=== PATIENT | male | born 1955 ===

== ENCOUNTER 2017-07-03 00:45 | Inpatient (IN) | payer MEDICARE, BC ==
[2017-07-03] VITALS (14 sets, daily range): BP systolic 98–140; BP diastolic 58–92
[~2017-07-03] VITALS: Ht 157.5 cm; Wt 123.4 kg
[~2017-07-03 00:45] MED LIST: ACET500T68 PO; ALLO-2 PO; ASPI-764 PO; ATOR40TA69 PO; CETI-176 PO; DOCU-202 PO; DULO60CA7 PO; Duloxetine Hcl PO; FLUO60TA PO; FURO80TA10 PO; GABA-547 PO; GABA-549 PO; HYDR-2966 PO; LISI-353 PO; LISI20TA29 PO; METO2.5T15 PO; MOM PO; MULT-820 PO; NAPR220C12 PO; OXYC-823 PO; POLY17PO21 PO; POTA20TA10 PO; POTA20TA94 PO; RANI-318 PO; TRAM-420 PO
[2017-07-03] MEDS ORDERED: THROMBIN (BOVINE) 20,000 UNIT VIAL ONE ×2 (06:20→06:57)
[2017-07-03] MEDS ORDERED: PROPOFOL EMUL(*) 10MG/ML 20 ML 80 ML ONE (06:28)
[2017-07-03] MEDS ORDERED: fentaNYL CITR 250 MCG/5 ML AMP ONE (06:33)
[2017-07-03] MEDS ORDERED: LIDOCAINE 2% IV 100 MG/5ML SYR ONE (06:33)
[2017-07-03] MEDS ORDERED: DEXAMETHASONE SOD PHOS 10MG/ML ONE (07:14)
[2017-07-03] MEDS ORDERED: ONDANSETRON 4 MG/2 ML VIAL ONE (07:14)
[2017-07-03] MEDS ORDERED: PROPOFOL EMUL(*) 10MG/ML 20 ML 60 ML ONE ×3 (07:25→09:25)
[2017-07-03] MEDS ORDERED: SUGAMMADEX SOD 500 MG/5 ML SDV ONE (07:45)
[2017-07-03] MEDS ORDERED: NS 0.9% IRRIGATION 1000ML PLCT IR ONE (09:12)
[2017-07-03] MEDS ORDERED: TRANEXAMIC AC 1000 MG/10ML SDV 1,000 MG in DEXTROSE 5% 50 ML BAG 50 ML IVPB ONE (09:15)
[2017-07-03] MEDS ORDERED: ceFAZolin(*) 1 GM VIAL 3 GM in NS(*) 0.9% 100 ML BAG 100 ML IVPB ONE (09:30)
[2017-07-03] MEDS ORDERED: FAMOTIDINE 20 MG TAB PO ONE (09:30)
[2017-07-03] MEDS ORDERED: MIDAZOLAM 2 MG/2 ML VIAL IVP PRN (09:30)
[2017-07-03] MEDS ORDERED: NORMOSOL R SOLN(*) 1000 ML BAG 1,000 ML IV PRN (09:30)
[2017-07-03] MEDS ORDERED: LIDOCAINE/SOD BICARB 8.4% SYR ID ONE (09:30)
[2017-07-03] MEDS ORDERED: fentaNYL CITR 100 MCG/2 ML AMP ONE ×4 (09:35→12:45)
[2017-07-03] MEDS ORDERED: PROPOFOL EMUL(*) 10MG/ML 20 ML 40 ML ONE (10:15)
[2017-07-03] MEDS ORDERED: PROPOFOL EMUL(*) 10MG/ML 20 ML 20 ML ONE ×2 (10:49→11:13)
[2017-07-03] MEDS ORDERED: VANCOMYCIN 1 GM VIAL ONE (10:58)
[2017-07-03] MEDS ORDERED: ceFAZolin 1 GM VIAL ONE (11:12)
[2017-07-03] MEDS ORDERED: HYDROmorphone HCL 2 MG/ML SDV IVP PRN (12:20)
[2017-07-03] MEDS ORDERED: FLUSH 10 ML SYR IVP PRN (12:20)
[2017-07-03] MEDS ORDERED: NORMOSOL R SOLN(*) 1000 ML BAG 1,000 ML IV ONE (12:20)
[2017-07-03] MEDS ORDERED: MAGNESIUM HYDROXIDE* 30ML UDCP PO PRN (12:20)
[2017-07-03] MEDS ORDERED: diphenhydrAMINE 25 MG CAP PO PRN (12:20)
[2017-07-03] MEDS ORDERED: LR(*) 1000 ML BAG 1,000 ML IV PRN (12:20)
[2017-07-03] MEDS ORDERED: ACETAMINOPHEN 500 MG TAB PO PRN (12:20)
[2017-07-03] MEDS ORDERED: ONDANSETRON 4 MG/2 ML VIAL IVP PRN (12:20)
[2017-07-03] MEDS ORDERED: BENZOCAINE/MENTHOL 1 EACH LOZG PO PRN (12:20)
[2017-07-03] MEDS ORDERED: ACETAMINOPHEN(*)1000 MG/100 ML 100 ML IVPB PRN (12:20)
[2017-07-03] MEDS ORDERED: DIAZEPAM 5 MG TAB PO PRN (12:20)
[2017-07-03] MEDS ORDERED: BISACODYL 10 MG SUPP PR PRN (12:20)
[2017-07-03] MEDS ORDERED: oxyCODONE HCL 5 MG CAP PO PRN (12:20)
--- NOTE | 2017-07-03 13:55 | RADIOLOGY IMAGING REPORT ---
FACILITY: [facility] - [place] PATIENT NAME: Artur Ansari : 1955 MR: [id number] V: [id number] EXAM DATE: ORDERING PHYSICIAN: SANDRA CHENG TECHNOLOGIST: Location: [facility] - [place] Patient: Artur Ansari : 1955 Visit/Account:[id number] Date of Sevice: 07/03/2017 Exam type: LUMBAR SPINE 1 VIEW History: POST OP L3-5 LAMI, L3-L5 FUSION Comparison: Intraoperative views lumbar spine performed earlier in the day. Findings: A single frontal view of the lumbar spine demonstrates bilateral pedicle screws and posterior fixatio n rods from L3 to L5. What appears to be a lap sponge marker projects over the L3-4 vertebral bodies on this single view. An ovoid opaque density projects over the inferior pole the left kidney. This could represent a renal calculus or superimposed shadow IMPRESSION: 1. As above Report Dictated By: Cristine Yeager MD at 07/03/2017 1:50 PM Report E-Signed By: Cristine Yeager MD at 07/03/2017 1:52 PM WSN:[email or web address]
--- NOTE | 2017-07-03 13:58 | RADIOLOGY IMAGING REPORT ---
FACILITY: [facility] - [place] PATIENT NAME: Artur Ansari : 1955 MR: [id number] V: [id number] EXAM DATE: ORDERING PHYSICIAN: SANDRA CHENG TECHNOLOGIST: Location: [facility] - [place] Patient: Artur Ansari : 1955 Visit/Account:[id number] Date of Sevice: 07/03/2017 Exam type: LUMBAR SPINE 1 VIEW History: L3-L5 DFISC HERNIATION Comparison: MR lumbar spine January 16, 2017. Findings: Assuming the patient has five lumbar type vertebral bodies present there two lateral intraoperative v iews of the lumbar spine demonstrating pedicle screws and posterior fixation rods at L3 L4 and L5. Metallic instruments project in the dorsal soft tissues lumbar spine. Old compression fracture of L1 again noted IMPRESSION: 1. As above Report Dictated By: Cristine Yeager MD at 07/03/2017 1:52 PM Report E-Signed By: Cristine Yeagre MD at 07/03/2017 1:55 PM WSN:[email or web address]
[2017-07-03] MEDS ORDERED: PYRI200T PO (13:59)
[2017-07-03] MEDS ORDERED: OMEG-96 PO (13:59)
[2017-07-03] MEDS: APAP/HYDROCODONE 325/5 TAB PO PRN ×2 (14:12→20:28)
[2017-07-03] MEDS: ceFAZolin 3 GM in NS 0.9% 100 ML BAG IVPB SCH ×2 (15:27→23:36)
[2017-07-03] MEDS ORDERED: LABETALOL HCL 20 MG/4 ML SYR ONE (16:37)
[2017-07-03] MEDS ORDERED: SUCCINYLCHOL CHL 200MG/10ML VL ONE (16:37)
[2017-07-03] MEDS ORDERED: ROCURONIUM BROM 10 MG/ML 10 ML ONE (16:37)
--- NOTE | 2017-07-03 17:24 | Hospitalist Consultation ---
History of Present Illness Requesting Physician Dr. Marrero Reason for Consult Hypertension History of Present Illness This patient was admitted for lumbar surgery. It is reported that the surgery went well and was without complication. History Problems: (1) Obesity, morbid, BMI 40.0-49.9 Status: Chronic (2) YE (obstructive sleep apnea) Status: Chronic (3) Gout Status: Chronic (4) Neuropathy Status: Chronic (5) HTN (hypertension) Status: Chronic (6) Chronic edema Status: Chronic Home Meds Reported Medications Pyridoxine HCl (Vitamin B6) (B-6) 200 Mg Tablet.er, 100 MG PO BID 07/03/17 Jackson-3 Fatty Acids/Fish Oil (OMEGA 3 1,000 MG SOFTGEL) 1 Each Capsule, 2 EACH PO BID, CAPSULE 07/03/17 Acetaminophen (TYLENOL EXTRA STRENGTH) 500 Mg Tablet, 3 TAB PO DAILY, TAB 06/28/17 Gabapentin (GABAPENTIN) 300 Mg Capsule, 300 MG PO TID, CAPSULE 06/28/17 Duloxetine HCl (Duloxetine HCl) 60 Mg Capsule.dr, 1 TAB PO DAILY 06/28/17 Lisinopril/Hydrochlorothiazide (LISINOPRIL-HCTZ 20-12.5 MG TAB) 1 Each Tablet, 1 EACH PO DAILY 06/28/17 Potassium Chloride (Potassium Chloride) 20 Meq Tablet.er, 1 TAB PO QDAY 09/26/16 Metolazone (METOLAZONE) 2.5 Mg Tablet, 2.5 MG PO QDAY 09/26/16 Furosemide (LASIX) 80 Mg Tablet, 1 TAB PO QDAY, TAB 09/26/16 Ranitidine Hcl (RANITIDINE HCL) 150 Mg Tablet, 150 MG PO DAILY 09/19/16 Multivitamin (MULTIVITAMINS) 1 Each Tablet, 1 EACH PO DAILY 09/19/16 Cetirizine Hcl (ZYRTEC) 10 Mg Tablet, 10 MG PO QDAY, TAB 09/19/16 Allopurinol (Allopurinol) 300 Mg Tablet, 1 TAB PO DAILY 09/19/16 Discontinued Reported Medications Oxycodone Hcl (OXYCONTIN) 10 Mg Tab.er.12h, 10 MG PO, TAB 10/27/16 Atorvastatin Calcium (ATORVASTATIN CALCIUM) 40 Mg Tablet, 1 TAB PO QDAY, TAB 09/19/16 Gabapentin (GABAPENTIN) 100 Mg Capsule, 100 MG PO BID, CAPSULE 09/19/16 Discontinued Scripts Lisinopril (LISINOPRIL) 20 Mg Tablet, 20 MG PO QDAY, #0 Hold for sbp<145 Prov:RAJESH DOBSON MD 09/26/16 Hydrochlorothiazide (HYDROCHLOROTHIAZIDE) 25 Mg Tablet, 12.5 MG PO QDAY, #0 Hold for sbp<145 Prov:RAJESH DOBSON MD 09/26/16 [Duloxetine Hcl] 30 MG CAPCR No Conflict Check, 60 MG PO QDAY, #0 Prov:RAJESH DOBSON MD 09/26/16 Docusate Sodium (DOCUSATE SODIUM) 100 Mg Capsule, 100 MG PO BID, #0 CAPSULE Prov:RAJESH DOBSON MD 09/26/16 Aspirin (ASPIRIN EC) 325 Mg Tablet.dr, 325 MG PO QDAY, #0 Take for 30 days after surgery for blood clot prevention Prov:RAJESH DOBSON MD 09/26/16 Allergies: Coded Allergies: No Known Drug Allergies (Unverified , 06/28/17) Patient History: FH: aortic aneurysm FATHER, FH: coronary artery bypass surgery BROTHER OR SISTER FH: diabetes mellitus MOTHER Hx Smoking: Yes (QUIT 1984. < 1 PPD X 5 YRS) Smoking Status: Former Smoker Caffeine Intake: Coffee, Soda Caffeine/Cups Per Day: 2-3 C. DAILY, 1 SODA DAILY Hx Alcohol Use: Yes Hx Substance Use Disorder: No Social Drug Use: Never History of IV Drug Use: No Review of Systems All Systems Reviewed/Normal: Yes Exam Vital Signs Vital Signs Date Time Temp Pulse Resp B/P (MAP) Pulse Ox O2 Delivery O2 Flow Rate FiO2 07/03/17 14:30 119/83 (95) 96 07/03/17 13:45 92 07/03/17 13:43 Oxy Mask 07/03/17 13:36 97.7 12 5.0 Neuro: No Gross deficits Eyes: PERRLA Cardiovascular: Regular Rate and Rhythm Extremities: No Edema Integumentary: No Cyanosis Assessment and Plan Problems: (1) HTN (hypertension) Status: Chronic Assessment & Plan: He is on chronic treatment with lisinopril/HCTZ. The lisinopril has been ordered with hold parameters. (2) Neuropathy Status: Chronic Assessment & Plan: He is on chronic treatment with gabapentin. (3) Gout Status: Chronic Assessment & Plan: He is on chronic treatment with allopurinol. (4) YE (obstructive sleep apnea) Status: Chronic Assessment & Plan: He is not compliant with CPAP. (5) Chronic edema Status: Chronic Assessment & Plan: He is on chronic treatment with Lasix and metolazone. (6) Obesity, morbid, BMI 40.0-49.9 Status: Chronic Central Venous Access Medical Necessity for Access: IV Access Venous Thromboembolism Antithrombotics Is Pt On Any Antithrombotics?: No Exam Sepsis Risk: No Definite Risk IKE CARRERA DO Jul 03, 2017 17:24
[2017-07-03] MEDS: GABAPENTIN 300 MG CAP PO SCH (20:28)
[2017-07-03] MEDS: DOCUSATE SODIUM 100 MG CAP PO SCH (20:28)
[2017-07-03] MEDS: PYRIDOXINE HCL 50 MG TAB PO SCH (20:29)
[2017-07-04] VITALS (7 sets, daily range): BP systolic 102–162; BP diastolic 72–86; Ht 157.5 cm; Wt 123.4 kg
[2017-07-04] MEDS: APAP/HYDROCODONE 325/5 TAB PO PRN ×3 (01:00→20:47)
[2017-07-04 06:57] LABS: PLATELET COUNT, AUTOMATED 302 K/uL (150-450)
[2017-07-04] MEDS: ceFAZolin 3 GM in NS 0.9% 100 ML BAG IVPB SCH (07:28)
--- NOTE | 2017-07-04 07:41 | Hospitalist Progress Note ---
Subjective Progress Notes Subjective This patient was admitted for lumbar surgery. He had no acute issues overnight. Patient Complains of: Cardiovascular: No: Chest Pain Respiratory: No: Shortness of Breath Physical Exam Vital Signs Date Time Temp Pulse Resp B/P (MAP) Pulse Ox O2 Delivery O2 Flow Rate FiO2 07/04/17 07:33 98.2 103 16 110/72 (85) Nasal Cannula 2.0 07/04/17 00:51 87 Intake and Output 07/05/17 07:00 Output Total 50 ml Balance -50 ml Output Drainage Total 50 ml Cardiovascular: Regular Rate and Rhythm Respiratory: Clear to Auscultation Result Diagram: 07/04/17 0649 Assessment and Plan Problems: (1) HTN (hypertension) Status: Chronic Assessment & Plan: He is on chronic treatment with lisinopril/HCTZ. The lisinopril has been ordered with hold parameters. (2) Neuropathy Status: Chronic Assessment & Plan: He is on chronic treatment with gabapentin. (3) Gout Status: Chronic Assessment & Plan: He is on chronic treatment with allopurinol. (4) YE (obstructive sleep apnea) Status: Chronic Assessment & Plan: He is not compliant with CPAP. (5) Chronic edema Status: Chronic Assessment & Plan: He is on chronic treatment with Lasix and metolazone. Both medications are ordered with hold parameters. (6) Obesity, morbid, BMI 40.0-49.9 Status: Chronic Central Venous Access Medical Necessity for Access: IV Access Exam Sepsis Risk: No Definite Risk Problem Qualifiers (1) HTN (hypertension): Hypertension type: essential hypertension Qualified Codes: I10 - Essential ( primary) hypertension IKE CARRERA DO Jul 04, 2017 07:41
[2017-07-04] MEDS: DOCUSATE SODIUM 100 MG CAP PO SCH ×2 (08:33→20:47)
[2017-07-04] MEDS: GABAPENTIN 300 MG CAP PO SCH ×3 (08:33→20:47)
[2017-07-04] MEDS: PYRIDOXINE HCL 50 MG TAB PO SCH ×2 (08:33→20:48)
[2017-07-04] MEDS ORDERED: METOLAZONE 2.5 MG TAB PO SCH (09:00)
[2017-07-04] MEDS ORDERED: CETIRIZINE HCL 10 MG TAB PO SCH (09:00)
[2017-07-04] MEDS ORDERED: DULoxetine HCL 30 MG CAPCR PO SCH (09:00)
[2017-07-04] MEDS ORDERED: FUROSEMIDE 80 MG TAB PO SCH (09:00)
[2017-07-04] MEDS ORDERED: ALLOPURINOL 300 MG TAB PO SCH (09:00)
[2017-07-04] MEDS ORDERED: LISINOPRIL 20 MG TAB PO SCH (09:00)
[2017-07-04] MEDS ORDERED: POTASSIUM CHL 20 MEQ TABCR PO SCH (09:00)
--- NOTE | 2017-07-04 10:06 | RADIOLOGY IMAGING REPORT ---
FACILITY: [facility] PATIENT NAME: Artur Ansari : 1955 MR: [id number] V: [id number] EXAM DATE: ORDERING PHYSICIAN: SANDRA CHENG TECHNOLOGIST: Location: [facility] [place] Patient: Artur Ansari : 1955 Visit/Account:[id number] Date of Sevice: 07/04/2017 Exam type: LUMBAR SPINE 2 OR 3 VIEW History: post lumbar surgery Comparison: July 03, 2017. Findings: There are bilateral pedicle screws and posterior fixation rods at L3, L4 and L5. The vertebral franco s appear in good alignment. What appeared to be a lap marker on the prior AP view of the spine from July 03, 2017 now appears to represent a drain. Moderate disc space narrowing at L1-2 noted in add ition to chronic compression fracture of L1 IMPRESSION: 1. Post surgical changes from posterior lumbar interbody fusion L3-L5 with the vertebral bodies appe aring in good anatomic alignment. Report Dictated By: Cristine Yeager MD at 07/04/2017 9:59 AM Report E-Signed By: Cristine Yeager MD at 07/04/2017 10:02 AM WSN:[email or web address]
--- NOTE | 2017-07-04 10:21 | OPERATIVE REPORT 1 ---
EVENT DATE: July 03, 2017 SURGEON: Leonidas Marrero MD ANESTHESIOLOGIST: Hema Poe MD ANESTHESIA: General endotracheal anesthesia. DERMATOLOGIST: PHUONG Carroll, REVIEW ENGINEER PREOPERATIVE DIAGNOSIS L3-L4 and L4-L5 degenerative spondylolisthesis with spinal stenosis and neurogenic claudication. POSTOPERATIVE DIAGNOSIS L3-L4 and L4-L5 degenerative spondylolisthesis with spinal stenosis and neurogenic claudication. PROCEDURE PERFORMED L3 through L5 laminectomy and L3 through L5 posterolateral instrumented fusion. IV FLUIDS 1900 mL. ESTIMATED BLOOD LOSS 400 mL. IMPLANTS Reline pedicle screws, 6.5 mm x 40 mm x 6, 70 mm connecting rods x 2 and locking caps for the Reline screws x 6. SPECIMENS None. DRAINS A 10 mm flat Sav-Murdock drain through the lower back. COMPLICATIONS None. DISPOSITION Post anesthesia care unit. INDICATION FOR SURGERY Mr. Ansari is a 62-year-old gentleman who presented with a long history of back and bilateral lower extremity radiating pain, numbness and tingling. He had significant decreased walking tolerance secondary to his lower extremity symptoms. He had failed physical therapy, medications, activity modifications. His physical examination was essentially normal, however, his imaging studies showed significant dynamic spondylolisthesis at L3-L4 and L4-L5 with complete reduction of those levels when lying supine in the MRI. There was bilateral lateral recess stenosis and central stenosis present at those levels superimposed on a congenitally narrow spinal canal. Secondary to ongoing symptoms, he was offered and elected to undergo L3 to L5 laminectomy and posterolateral instrumented fusion. Prior to surgery, I explained in detail to the patient the possible risks of surgery, which included the risk of nerve injury, persistent and/or worsening pain, spinal fluid leak, infection or meningitis, excessive bleeding, paralysis , , blindness, sexual dysfunction, autonomic nervous system dysfunction, retrograde ejaculation, injury to neighboring organs, need for further surgery, bowel and bladder dysfunction, instability, and unforeseen medical and surgical complications. An understanding that in general spinal surgery is more predictive in improving extremity discomfort than axial spine pain and arresting the progression of spinal cord dysfunction rather than improving it was stressed. The risks of junctional degeneration, bone graft donor morbidity, the differences in efficacy between local bone graft, iliac crest bone graft and allograft, the FDA status of the instrumentation, the possible need for further surgery, the risk of non-healing, instrumentation failure, and chronic pain were also explained. DESCRIPTION OF PROCEDURE On the date of surgery, the patient was admitted to the preoperative hold area, and all questions were answered. The operative site was marked by myself. The patient was then taken to the operating room, and after identification of the patient and the operative site, administration of antibiotics and completion of anesthesia, the patient was prepped and draped in the prone position on a Sav table. During this time and the entire operation, care was taken to maintain appropriate perfusion pressures during anesthesia. All bony protuberances and soft tissues were well padded in a standard fashion. Pre- and intraoperatively, prophylactic antibiotics were administered according to the appropriate timing schedule. At the conclusion of the procedure, the sponge and needle count were correct x 2. Baseline neurophysiologic monitoring was obtained. Prior to the surgery, I described to the patient and his family the importance and value of electrophysiological monitoring. The patient understands that at times monitoring may cease to be informative due to the intrinsic disease of the spinal cord or peripheral nerve roots and not to any intraoperative event. If monitoring is unobtainable or lost in the absence of a correctable maneuver, the patient has given permission for continuation of the operative procedure, understanding that spinal cord and nerve roots cannot be monitored any further. The surgeon in this situation is now blinded to any adverse changes in neural function, is therefore unable to make any corrective maneuvers to alter this course. The patient understands that upon awakening from anesthesia, he may be paralyzed or experience worsening of neurologic function. Throughout the procedure, there were no significant changes in neurophysiologic monitoring. Final time out was undertaken by members of the operating team to confirm correct patient, correct levels and correct surgery. An incision was then made in the skin over the intended surgical levels, and dissection was carried down to the subcutaneous tissue to the level of the deep fascia. The deep fascia was elevated off the posterior elements in a subperiosteal manner. An intraoperative radiograph was taken to confirm the appropriate spinal level. Once the appropriate spinal levels were identified with intraoperative imaging, a rongeur was used to remove the spinous process of L3 and L4. Once this was completed, the laminas were thinned bilaterally with the use of a rongeur. A small curved curette was used to undermine the inferior insertion of the ligamentum flavum on the undersurface of the inferior lamina. All dural adhesions were freed from the surrounding bone and ligaments with use of a [place] prior to the use of the Kerrison punch. A 4-0 Kerrison punch was then used to perform midline decompression. A bilateral lateral recess decompression was performed using 3-0 Kerrison rongeurs to decompress thoroughly the lateral recesses at L3-L4 and L4-L5. This was followed by foraminotomies of the L3, the L4 and the L5 nerve roots. An angled dural elevator was then passed around exiting nerve root, confirming they were free without any compression. Following the decompression procedure, we turned our attention to placement of pedicle screws. The appropriate starting points for the pedicles were located at approximately the intersection of the midpoint of the transverse processes, the lateral aspect of the pars interarticularis, and the lateral border of the superior articular process. Crossword Puzzle Maker holes were made at the entry point of the respective pedicles at approximately the intersection of the transverse process , superior articular process and pars interarticularis. A probe was then placed at the starting point and slowly advanced against resistance through the isthmus of the pedicles. Once at the appropriate depth, a sounding probe was used to palpate all bony quadrants as well as distally to ensure no bony breaching. Each hole was then re-probed prior to screw placement. Pedicle screws were placed bilaterally at L3, L4 and L5, utilizing 6.5 mm x 40 mm screws at each level. Each screw was tested with neurophysiologic monitoring to confirm absence of pedicle wall breaching. 70 mm rods were then chosen and placed within the screws, and then tightened following appropriate contouring. These were then finally tightened and confirmed in good position with intraoperative imaging. A high speed kerwin was then used to kerwin down the facet joints of L3-L4 and L4- L5. Additionally, we decorticated the transverse processes of L3, L4 and L5 bilaterally. We utilized all of our local bone from the laminectomy after running it through a bone mill to bone graft out in the lateral recesses, both on the left and the right. This was all completed after the wound had been irrigated with copious sterile saline solution. Once we were satisfied with placement of our grafting material, we sprinkled a gram of vancomycin on the soft tissues within the incision, and we also elected to utilize DuraSeal as a mechanical hemostatic agent secondary to significant ongoing oozing from the bony edges of the laminectomy defect. This accomplished the goal nicely. We then closed the incision with interrupted sutures in the deep fascia, inverted interrupted sutures in the subcutaneous tissue and then a running subcuticular skin stitch. Sponge and instrument counts were correct x 2. We placed a drain deep to the fascia. POSTOPERATIVE CARE PLAN Mr. Ansari will remain in the hospital until his drainage from his lumbar drain has decreased to less than 40 mL per shift. We will then pull the drain, and once he is up and mobilized, he will be discharged home with followup planned for two weeks postoperatively. At that time, we will perform a wound check and an examination. MEGHA
[2017-07-05 02:46] VITALS: BP 113/77
[2017-07-05] MEDS: APAP/HYDROCODONE 325/5 TAB PO PRN (03:06)
[2017-07-05] MEDS ORDERED: DOCU240C84 PO (06:56)
[2017-07-05] MEDS ORDERED: DIA5 PO (06:56)
[2017-07-05] MEDS ORDERED: OXYC-865 PO (06:56)
== END 2017-07-05 08:05 | disposition home or self-care (01) | DRG 460 ==
LOC: OR 00:45 → MED 13:33
PROVIDERS: ADMIT Orthopaedic Surgery; ATTEND Orthopaedic Surgery
PROC: 01NB0ZZ Release Lumbar Nerve, Open Approach (ICD-10-PCS; 2017-07-03)
PROC: 00UT0JZ Supplement Spinal Meninges with Synthetic Substitute, Open Approach (ICD-10-PCS; 2017-07-03)
PROC: 5A09357 Assistance with Respiratory Ventilation, Less than 24 Consecutive Hours, Continuous Positive Airway Pressure (ICD-10-PCS; 2017-07-03)
PROC: 0SG1071 Fusion of 2 or more Lumbar Vertebral Joints with Autologous Tissue Substitute, Posterior Approach, Posterior Column, Open Approach (ICD-10-PCS; principal; 2017-07-03 07:06)
DX: M48.062 Spinal stenosis, lumbar region with neurogenic claudication (principal); Z68.42 Body mass index [BMI] 45.0-49.9, adult; M43.16 Spondylolisthesis, lumbar region; I10 Essential (primary) hypertension; E66.01 Morbid (severe) obesity due to excess calories; G47.33 Obstructive sleep apnea (adult) (pediatric); E78.5 Hyperlipidemia, unspecified; M1A.9XX0 Chronic gout, unspecified, without tophus (tophi); E89.2 Postprocedural hypoparathyroidism; R60.9 Edema, unspecified; K21.9 Gastro-esophageal reflux disease without esophagitis; Z96.653 Presence of artificial knee joint, bilateral; Z99.81 Dependence on supplemental oxygen; Z90.49 Acquired absence of other specified parts of digestive tract; Z87.891 Personal history of nicotine dependence; Z91.19 Patient's noncompliance with other medical treatment and regimen
CPT/HCPCS: 36415; 72020; 72100; 85025; 86850; 86900; 86901; 94660; 97161; C1713; J0330; J0690; J1100; J2001; J2250; J2405; J2704; J3010; J3370; J3490; J7050; J7060; Q0163